=== PATIENT | male | born 1985 | race Caucasian/White ===

== ENCOUNTER → 2016-10-24 | Outpatient (CLI) | payer BC ==
[~2016-10-24] MED LIST: ZOFRAN ODT4 MG PO
== END ==
LOC: BHSO 08:54
DX: F41.1 Generalized anxiety disorder (principal)

== ENCOUNTER → 2017-02-20 | Outpatient (CLI) | payer BC | LOC: BHSO 14:13 | DX: F41.1 Generalized anxiety disorder (principal) ==

== ENCOUNTER → 2017-05-23 | Outpatient (CLI) | payer BC | LOC: BHSO 14:44 | DX: F41.1 Generalized anxiety disorder (principal) ==